=== PATIENT | female | born 2000 | race Two or more races ===

== ENCOUNTER 2022-04-14 22:26 | Emergency (ER) | payer MEDICAID ==
[~2022-04-14] VITALS: Ht 157.5 cm; Wt 92.9 kg
[2022-04-14 22:26] VITALS: BP 107/67
[2022-04-15] MEDS ORDERED: IBUP600T28 PO (00:18)
[2022-04-15] MEDS ORDERED: CYCL-837 PO (00:18)
== END 2022-04-15 03:37 | disposition home or self-care (01) ==
LOC: ER 22:29
DX: S46.911A Strain of unspecified muscle, fascia and tendon at shoulder and upper arm level, right arm, initial encounter (principal); X58.XXXA Exposure to other specified factors, initial encounter; Y93.89 Activity, other specified; Y92.89 Other specified places as the place of occurrence of the external cause; Y99.8 Other external cause status
CPT/HCPCS: 73030; 81025